=== PATIENT | male | born 1990 | race Caucasian/White ===

== ENCOUNTER 2016-07-09 16:34 | Emergency (ER) | payer SELFPAY ==
[2016-07-09] MEDS ORDERED: HYDROCODONE/ACETAMINOPHEN 5/325MG TABLET ONE (17:45)
[2016-07-09] MEDS ORDERED: IBUPROFEN 800 MG TABLET ONE (17:45)
== END 2016-07-09 18:08 | disposition home or self-care (01) ==
LOC: ED 16:34
DX: B02.9 Zoster without complications (principal); F17.210 Nicotine dependence, cigarettes, uncomplicated
CPT/HCPCS: 99283 ×2; A9270 ×2